=== PATIENT | male | born 1970 | race Caucasian/White ===

== ENCOUNTER 2017-08-09 07:27 | Outpatient (CLI) | payer BC ==
[2017-08-09 08:53] LABS: ALT (SGPT) 24 U/L (8-55); AST (SGOT) 17 U/L (5-34); Albumin 4.1 g/dL (3.5-5.0); Alkaline Phosphatase 78 U/L (40-150); Anion Gap 13 mmol/L (10-20); BUN (Urea Nitrogen) 10 mg/dL (8.9-20.6); Bilirubin, Total 0.6 mg/dL (0.2-1.2); Calc. Creatinine Clearance 0 mL/min (70-130); Calcium 9.1 mg/dL (7.8-10.44); Carbon Dioxide 25 mmol/L (22-29); Chloride 108 mmol/L (98-107); Estimated GFR-MDRD 82; Globulin 2.9 g/dL (2.4-3.5); Glucose 94 mg/dL (70-105); Potassium 3.9 mmol/L (3.5-5.1); Sodium 142 mmol/L (136-145)
[2017-08-09 08:55] LABS: #Basophils 0.1 thou/uL (0.0-0.2); #Eosinphils 0.1 thou/uL (0.0-0.7); #Lymphocytes 2.4 thou/uL (1.20-3.40); #Monocytes 0.8 thou/uL (0.11-0.59); #Neutrophils 6.4 thou/uL (1.40-6.50); %Basophils 1.1 % (0.0-1.0); %Eosinophils 1.5 % (0.0-10.0); %Lymphocytes 24.8 % (21.0-51.0); %Monocytes 7.8 % (0.0-10.0); %Neutrophils 64.8 % (42.0-75.0); Hemoglobin 16.9 g/dL (14.0-18.0); Mean Corpuscular HGB CONC 33.2 g/dL (32.0-36.0); Mean Corpuscular Hemoglobin 30.1 pg (27.0-31.0); Mean Corpuscular Volume 90.7 fl (80.0-94.0); Mean Platelet Volume 7.7 fL (7.4-10.4); Platelet Count 216 thou/uL (130-400); RBC Distribution Width 11.4 % (11.5-14.5); White Blood Cell (WBC) Count 9.8 thou/uL (4.8-10.8)
[2017-08-09 10:51] LABS: Bilirubin Negative (Negative); Blood, Urine Trace (Negative); Clarity Clear (Clear); Glucose, Urine (Dipstick) Negative (Negative); Leukocyte Negative (Negative); Nitrite Negative (Negative); Protein, Urine (Dipstick) Negative (Neg-Trace); RBC/HPF 0-3 HPF (0-3); Urobilinogen 0.2 mg/dL (0.2-1.0)
[2017-08-09 10:52] LABS: Bacteria/HPF Rare-Few HPF (None Seen); Squamous Epithelial 0-3 HPF (0-3); WBC/HPF 0-3 HPF (0-3)
== END 2017-08-09 07:28 | disposition home or self-care (01) ==
LOC: MADLABBHPM 07:27
PROVIDERS: ATTEND Family Medicine
DX: R31.21 Asymptomatic microscopic hematuria (principal); E78.1 Pure hyperglyceridemia; F17.200 Nicotine dependence, unspecified, uncomplicated
CPT/HCPCS: 36415; 80053; 81001; 85025

== ENCOUNTER 2020-05-22 09:25 | Outpatient (CLI) | payer BC ==
[2020-05-22] MEDS ORDERED: Iopamidol 370 76% 100 ML VIAL IV ONE (09:26)
--- NOTE | 2020-05-22 10:26 | CT ---
CT ABDOMEN AND PELVIS WITH IV CONTRAST 05/22/2020 CLINICAL INFORMATION: Left-sided low back pain. COMPARISON: None. Technique: Multiple contiguous axial CT images are obtained through the abdomen and pelvis with IV contrast. Cor onal reformatted images are provided. FINDINGS: Lower Chest: Lung bases are clear. Vessels: Abdominal aorta is normal in caliber without evidence of an aortic dissection. Minimal vascu lar calcifications are seen in the infrarenal abdominal aorta. Abdomen: Portal vein:Patent Gallbladder: Surgically absent. Liver: Mild diminished attenuation suggesting fatty infiltration. A subcentimeter low-density lesion is seen in the inferior aspect posterior segment right hepatic lobe which is too small to characterize. Liver measures 19.8 cm in craniocaudal dimensions. Spleen: Few splenic granulomata are present. Pancreas: within normal limits. Adrenals: within normal limits. Kidneys: within normal limits. Bowel: Normal caliber. Appendix: The appendix is visualized and normal in caliber. Peritoneum: No ascites or free air; no fluid collection. Mesentery and Retroperitoneum: No enlarged mesenteric or retroperitoneal lymph nodes. Abdominal Wall: within normal limits. Pelvis: Reproductive Organs: No pelvic masses. Pelvis within normal limits. Bladder: Incompletely distended but grossly normal in appearance. Bones: No suspicious lytic or sclerotic osseous lesions are identified. Vertebral body heights are wi thin normal limits, and no fracture or subluxation is seen involving this lumbar spine. Degenerative changes are seen involving each sacroiliac joint. IMPRESSION: 1. No acute findings are seen in the abdomen or pelvis. 2. Hepatomegaly. The liver is mildly enlarged in craniocaudal dimensions. 3. Subcentimeter too small to characterize hypodense lesion right hepatic lobe. 4. Evidence of cholecystectomy.
== END 2020-05-22 09:26 | disposition home or self-care (01) ==
LOC: MADCT 09:25
PROVIDERS: ATTEND Family Medicine
DX: M54.5 Low back pain (principal); R10.2 Pelvic and perineal pain; R16.0 Hepatomegaly, not elsewhere classified; K76.9 Liver disease, unspecified; Z90.49 Acquired absence of other specified parts of digestive tract
CPT/HCPCS: 74177; Q9967

== ENCOUNTER 2023-03-10 14:38 | Outpatient (CLI) | payer BC | END 2023-03-10 14:39 | disposition home or self-care (01) | LOC: MADRAD 14:38 | PROVIDERS: ATTEND Nurse Practitioner Family | DX: R60.0 Localized edema (principal); M79.672 Pain in left foot ==

== ENCOUNTER 2025-08-21 07:59 | Outpatient (CLI) | payer BC ==
[2025-08-21 08:12] LABS: Glucose, Urine (Dipstick) Negative (Negative); Leukocyte Negative (Negative); Protein, Urine (Dipstick) Negative (Neg-Trace); Specific Gravity, Urine 1.015 (1.005-1.030)
[2025-08-21 08:16] LABS: #Basophils 0.1 thou/uL (0.0-0.2); #Eosinophils 0.2 thou/uL (0.0-0.7); #Lymphocytes 2.2 thou/uL (1.20-3.40); #Monocytes 0.4 thou/uL (0.11-0.59); #Neutrophils 5.2 thou/uL (1.40-6.50); %Basophils 1.2 % (0.0-1.0); %Eosinophils 2.5 % (0.0-10.0); %Lymphocytes 27.0 % (21.0-51.0); %Monocytes 5.3 % (0.0-10.0); %Neutrophils 64.0 % (42.0-75.0); Hematocrit 48.1 % (42.0-52.0); Hemoglobin 15.8 g/dL (14.0-18.0); Mean Corpuscular Hemoglobin 29.5 pg (27.0-31.0); Mean Corpuscular Volume 89.5 fl (78.0-98.0); Platelet Count 278 10x3/uL (130-400); Red Blood Cell (RBC) Count 5.37 mill/uL (4.70-6.10); White Blood Cell (WBC) Count 8.1 10x3/uL (4.8-10.8)
[2025-08-21 08:24] LABS: Bacteria/HPF Rare-Few HPF (None Seen); RBC/HPF 0-3 HPF (0-3); WBC/HPF 0-3 HPF (0-3)
[2025-08-21 08:32] LABS: ALT (SGPT) 24 U/L (Less than 45); AST (SGOT) 25 U/L (11-34); Albumin 4.4 g/dL (3.1-4.5); Alkaline Phosphatase 59 U/L (40-110); Anion Gap 14 mmol/L (10-20); BUN (Urea Nitrogen) 8 mg/dL (8.4-25.7); Bilirubin, Total 0.4 mg/dL (0.3-1.2); Calc. Creatinine Clearance 0 mL/min (70-130); Calcium 9.3 mg/dL (7.8-10.44); Carbon Dioxide 24 mmol/L (22-29); Cardiac Risk 6.5 (Less than 4.5); Chloride 109 mmol/L (98-107); Cholesterol 200 mg/dl (< 200 Desired); Globulin 2.7 g/dL (2.4-3.5); Glucose 92 mg/dL (70-105); HDL Cholesterol 31 mg/dL (>60 Neg Risk); Potassium 3.7 mmol/L (3.5-5.1); Sodium 143 mmol/L (136-145); Triglycerides 422 mg/dL (Less than 150)
[2025-08-22 08:05] LABS: % Free PSA 17.9 % (.); Total PSA 1.4 ng/mL (0.0-4.0)
== END 2025-08-21 08:00 | disposition home or self-care (01) ==
LOC: MADLAB 07:59
PROVIDERS: ATTEND Physician Assistant
DX: Z00.00 Encounter for general adult medical examination without abnormal findings (principal); Z12.5 Encounter for screening for malignant neoplasm of prostate
CPT/HCPCS: 36415; 80053; 80061; 81001; 83036; 84153; 84154; 84439; 84443; 85025